=== PATIENT | female | born 1955 | race Caucasian/White ===

== ENCOUNTER 2022-09-02 11:02 | Inpatient (IN) ==
--- NOTE | 2022-07-11 14:42 | PAT Medication Instructions ---
Medication Instructions Date of Service July 11, 2022 Home Medications Nebutone 750 mg PO BID allopurinol 100 mg tablet 100 mg PO QAM amlodipine 5 mg tablet 5 mg PO QAM aspirin 81 mg tablet,delayed release 81 mg PO QAM ] atorvastatin 40 mg tablet (Lipitor) 40 mg PO HS cholecalciferol (vitamin D3) 50 mcg (2,000 unit) capsule (Vitamin D3) 50 mcg PO QAM cyanocobalamin (vitamin B-12) 50 mcg tablet (Vitamin B-12) 50 mcg PO QAM hydroxychloroquine 200 mg tablet (Plaquenil) 200 mg PO BID lisinopril 40 mg tablet 40 mg PO QAM metoprolol succinate 50 mg tablet,extended release 24 hr 50 mg PO BID oxybutynin chloride 5 mg tablet 5 mg PO QAM pantoprazole 40 mg tablet,delayed release 40 mg PO QAM torsemide 10 mg tablet 10 mg PO UD ASK your surgeon for instructions Nebutone 750 mg PO BID ASK your prescriber and surgeon hydroxychloroquine 200 mg tablet (Plaquenil) 200 mg PO BID DO NOT take the morning of surgery cholecalciferol (vitamin D3) 50 mcg (2,000 unit) capsule (Vitamin D3) 50 mcg PO QAM cyanocobalamin (vitamin B-12) 50 mcg tablet (Vitamin B-12) 50 mcg PO QAM lisinopril 40 mg tablet 40 mg PO QAM oxybutynin chloride 5 mg tablet 5 mg PO QAM torsemide 10 mg tablet 10 mg PO UD Take morning of surgery With a small sip of water, OTHERWISE NOTHING TO EAT OR DRINK AFTER MIDNIGHT: allopurinol 100 mg tablet 100 mg PO QAM amlodipine 5 mg tablet 5 mg PO QAM aspirin 81 mg tablet,delayed release 81 mg PO QAM (unless surgeon directed otherwise) metoprolol succinate 50 mg tablet,extended release 24 hr 50 mg PO BID pantoprazole 40 mg tablet,delayed release 40 mg PO QAM Take evening before surgery atorvastatin 40 mg tablet (Lipitor) 40 mg PO HS metoprolol succinate 50 mg tablet,extended release 24 hr 50 mg PO BID Other Notes If you have any questions please call us at [phone] or [phone] or [phone] or [phone]
--- NOTE | 2022-07-18 11:38 | Anesthesiology Consultation ---
Date of Service July 18, 2022 Assessment & Plan (1) Encounter for pre-operative examination: - COVID screening: Per assessment on 07/18: No known COVID-19 positive contacts or current COVID-19 related symptoms. Travel screen negative. Patient vaccinated. At surgeon discretion if preop Covid testing being done. - ASA instructions: per surgeon/prescriber (per patient, she has already been advised to continue ASA perioperatively) - Cardiology visit (06/04/22): "Family history of sarcoidosis however no evidence of systemic sarcoidosis at this moment. I do not feel there is any need to pursue cardiac sarcoidosis work-up at this moment.. PYP scan was initially read as positive for TTR however it turned out to be a wrong interpretation. Patient was seen in cardiac amyloidosis clinic at [place] and underwent extensive work-up. Eventually cardiac amyloidosis was conclusively ruled out however patient has persistently elevated highsensitivity troponin 800 which concerned them. Stress PET scan was negative.. CAD s/p PCI to RCA 2004. PCI to LAD 10/2021 (No CP, negative stress test, but SOB did improve after PCI).. Patient is clinically stable from cardiac standpoint.. Stop Plavix since it has been more than 6 months from prior PCI. Continue aspirin.. History of HR PEF, positive saline challenge on right heart cath. Clinically euvolemic on torsemide.. Persistently elevated highsensitivity troponin. Cardiology at [place] is following closely. Will order highsensitivity troponin in 5 months and communi sameer the results to them.. Without residual disease patient is low risk for perioperative major adverse cardiovascular event for back surgery. No further cardiac workup needed prior to back surgery." Chart Review Chart Review: Acceptable Risk for Surgery and Patient seen in Pre Admission Testing Teaching & Discussion Pre-Anesthesia Teaching/Discussion Notes: Instructed NPO after midnight before surgery,except medications with 15 cc of water. Medication instructions provided according to the PAT guidelines. History Surgery Operation Date: 08/01/22 10:35 Proposed Procedures p L4-S1 Decompression and Fusion, Spinal Cord Monitoring - Chris Shay, Height/Weight Height: 4 ft 9 in Weight: 74.843 kg Allergies Allergy/AdvReac Type Severity Reaction Status Date / Time cephalexin [From Keflex] Allergy Rash Verified 07/09/22 11:26 guaifenesin [From Entex LA] Allergy Hives Verified 07/09/22 11:26 phenylephrine [From Entex LA] Allergy Hives Verified 07/09/22 11:26 phenylpropanolamine Allergy Hives Verified 07/09/22 11:26 [From Entex LA] Sulfa (Sulfonamide Allergy Rash Verified 07/09/22 11:26 Antibiotics) Dura-Tuss Allergy hyperactivi Uncoded 07/09/22 11:26 ty Medications Home Medications Medication Instructions Recorded Confirmed Last Taken Nebutone 750 mg PO BID 07/09/22 07/09/22 Unknown allopurinol 100 mg tablet 100 mg PO QAM 07/09/22 07/09/22 Unknown amlodipine 5 mg tablet 5 mg PO QAM 07/09/22 07/09/22 Unknown aspirin 81 mg tablet,delayed 81 mg PO QAM 07/09/22 07/09/22 Unknown release atorvastatin 40 mg tablet (Lipitor) 40 mg PO HS 07/09/22 07/09/22 Unknown cholecalciferol (vitamin D3) 50 50 mcg PO QAM 07/09/22 07/09/22 Unknown mcg (2,000 unit) capsule (Vitamin D3) cyanocobalamin (vitamin B-12) 50 50 mcg PO QAM 07/09/22 07/09/22 Unknown mcg tablet (Vitamin B-12) hydroxychloroquine 200 mg tablet 200 mg PO BID 07/09/22 07/09/22 Unknown (Plaquenil) lisinopril 40 mg tablet 40 mg PO QAM 07/09/22 07/09/22 Unknown metoprolol succinate 50 mg 50 mg PO BID 07/09/22 07/09/22 Unknown tablet,extended release 24 hr oxybutynin chloride 5 mg tablet 5 mg PO QAM 07/09/22 07/09/22 Unknown pantoprazole 40 mg tablet,delayed 40 mg PO QAM 07/09/22 07/09/22 Unknown release torsemide 10 mg tablet 10 mg PO UD 07/09/22 07/09/22 Unknown Past Medical History Medical History CAD (coronary artery disease) 10/2021- PCI to mid LAD 2004- PCI to RCA Follows with Dr. Hummel ([facility] Cardiology [place]) Emphysema lung "No current issues" per patient GERD (gastroesophageal reflux disease) Gout Hiatal hernia Hyperlipidemia Hypertension Lupus Myocardial Infarction 2004 > PCI to RCA Obesity Osteoarthritis Urinary urgency Attempted bladder surgery failed > now has urgency Exercise / Class Metabolic Activity III < 4 Walking/Shop/Light housework (one FS (no CP, SOB- unchanged)) Past Surgical History Surgical History History of bunionectomy of both great toes History of carpal tunnel release of both wrists History of esophagogastroduodenoscopy (EGD) History of heart artery stent 10/2021- PCI to mid LAD 2004- PCI to RCA Hx laparoscopic cholecystectomy Hx of bladder repair surgery Hx of total hysterectomy Hx of tubal ligation HX: benign breast biopsy Past Anesthesia History No Hx of Anesthesia Complications History of PONV No Hx of PONV and No Hx of Motion Sickness Social History Smoking Status: Current some day smoker tobacco type: cigarettes Smoking cigarettes per day: Occasional (not regular use) Do You Dip or Chew Tobacco: No Hx Alcohol Use: No Hx Substance Use: No substance use type: does not use Review of Systems Patient denies chest pain, shortness of breath, fever, chills, cough, wheezing, palpitations. Physical Exam Vital Signs VITALS BP 134/67 P 67 TEMP 98.5 SP02 96%RA RESP 18 PHYSICAL Full cervical extension range of motion. Full TMJ range of motion. TMD 3.5 finger breaths Mallampati Score 1 Dentition: full upper/lower dentures Lungs: clear throughout to auscultation Cardiac: regular rate and rhythm, no murmurs noted Spine: normal Carotid arteries: negative bruit Extremities: no LE edema Lab Results Anesthesia Preop Results Results Anesthesia Widget: WBC 7.15 K/ul (4.8-10.8) 07/18/22 Hgb 13.1 g/dl (12.0-16.0) 07/18/22 Hct 38.2 % (37.0-47.0) 07/18/22 Plt 209 K/uL (130-400) 07/18/22 Na 138 mmol/L (136-145) 07/18/22 K 4.3 mmol/L (3.5-5.1) 07/18/22 Cl 107 mmol/L (98-107) 07/18/22 CO2 25 mmol/L (21-32) 07/18/22 BUN 15 mg/dl (6-23) 07/18/22 Creat 1.15 mg/dl (0.6-1.2) 07/18/22 Glucose Level 159 mg/dl (70-99(Fasting)) H 07/18/22 PT 11.4 Seconds (9.0-12.0) 07/18/22 PTT 26.5 Seconds (21.0-31.0) 07/18/22 INR 1.0 (0.9-1.1) 07/18/22 Urine Color Dark Yellow 07/18/22 Urine Appearance Clear (Clear) 07/18/22 Urine pH 5.0 (4.5-7.5) 07/18/22 Urine Specific [place] 1.031 (1.000-1.030) H 07/18/22 Urine Protein Trace (Negative) H 07/18/22 Urine Glucose (UA) Negative (Negative) 07/18/22 Urine Ketones Trace (Negative) H 07/18/22 Urine Blood Negative (Negative) 07/18/22 Urine Nitrite Negative (Negative) 07/18/22 Urine Bilirubin Negative (Negative) 07/18/22 Urine Urobilinogen Negative (Negative) 07/18/22 Urine Leukocyte Esterase Negative (Negative) 07/18/22 Urine WBC (Auto) 1-5 /hpf (0-5) 07/18/22 Urine RBC (Auto) 0-4 /hpf (0-4) 07/18/22 Urine Hyaline Casts (Auto) 1-5 /lpf (0-5) 07/18/22 Urine Epithelial Cells (Auto) >30 /lpf (0-5) H 07/18/22 Urine Bacteria (Auto) 1+ (Negative) H 07/18/22 Blood Type A Positive 07/18/22 Antibody Screen NEGATIVE 07/18/22 Testing Laboratory Results Surgeon's office made aware of abnormal UA* Electrocardiogram Date: 07/18/22 SR with PACs at 69bpm. RBBB. Inferior infarct, age undetermined. Basal inferior wall consistent with prior infarct in the RCA territory per 03/2022 stress test. Cardiology preop evaluation appt done 05/2022* Chest X-Ray Date: 07/18/22 FINDINGS: Lung volumes are normal. Lungs are clear. There is no pneumothorax or pleural effusion. There is mild cardiomegaly. Mediastinal contours are normal. There is no evidence for pulmonary edema. IMPRESSION: No acute cardiopulmonary findings. Cardiomegaly. Echocardiogram Date: 08/20/21 LVEF 65%. Moderate LVH. Restrictive filling pattern consistent with grade 3 diastolic dysfunction with evidence of elevated LV end-diastolic pressure. Moderate LAD. Moderate MR. Mild SC. Stress Test Date: 04/02/22 Type: nuclear Small resting defect of mild intensity in the basal inferior wall consistent with prior infarct in the RCA territory, previously reported on a stress CMR. LVEF 63% at rest and with stress. Hypokinesis of the inferior basal wall.Consistent with known RCA disease and prior infarction. Findings consistent with microvascular disease and the patient with known non-ischemic cardiomyopathy. No myocardial ischemia. 48% MPHR. Cardiac Catheterization Date: 10/10/21 Significant mid LAD stenosis s/p PCI, otherwise mild ISR of RCA stent 20% and mild luminal irregularity of the mid CFX. LM is angiographically normal. EF 65 to 70%, no significant trans aortic gradient. Mean PAP 29 mmHg. RAP 4 mmHg. Abnormal LV compliance. Other Testing Carotid studies (12/2020) "normal velocities without stenosis" per 05/2022 cardiology visit note. Attempts to obtain official report unsuccessful. Cardiac MRI (11/13/21) No cardiac MRI evidence of amyloidosis. Near transmural late gadolinium enhancement of the basal and mid inferior temple consistent with previous infarction in the RCA territory with minimal viability. Additionally, there is evidence of linear mid-wall late gadolinium enhancement in the mid anterior septal and inferior septal wall, consistent with a non-ischemic etiology. Normal LV size and normal global systolic function. LVEF 59%. No LVH. Moderate LAD. Mild RAD. No significant valvular disease. Hiatal hernia. COVID-19 Risk Screen Screening Information COVID-19 Screen Date: 07/18/22 Exposure 21 Days Family/Household +COVID Last 21 Days: No Exposure 10 Days Any COVID Exposure Last 10 Days: No Symptoms Last 10 Days Experienced COVID Sx Last 10 Days: No + COVID 0-90 Days COVID + in Last 0-90 Days: No
[~2022-09-02 11:02] MED LIST: ACETAMINOPHEN 500 MG TAB PO SCH; GABAPENTIN 300 MG CAP PO SCH; LR 15ML/HR IV SCH; ceFAZolin 2000MG 2,000 MG/15 ML SYR IV SCH
[2022-09-02] MEDS ORDERED: LIDOCAINE 2% 2 ML VIAL/AMP(20MG/ML) INFIL ONE (11:51)
[2022-09-02] MEDS ORDERED: PROPOFOL IV EMULSION 10 MG/ML 20 ML VIAL IV ONE (11:51)
[2022-09-02] MEDS ORDERED: MIDAZOLAM HCL 1 MG/ML 2ML VIAL ONE (11:51)
[2022-09-02] MEDS ORDERED: fentaNYL citrate PF 100 MCG/2 ML VIAL ONE (11:51)
[2022-09-02] MEDS ORDERED: ROCURONIUM BROMIDE 10 MG/ML 5 ML VIAL IV ONE ×4 (11:51→14:00)
--- NOTE | 2022-09-02 12:12 | History & Physical Bridge Note ---
Date of Service September 02, 2022 History & Physical Bridge Note I have examined the patient, reviewed the History & Physical and in the interval since the performance of the History & Physical I have noted the following changes of clinical significance: no changes noted
--- NOTE | 2022-09-02 12:13 | History & Physical Report ---
Date of Service September 02, 2022 Assessment & Plan (1) Neurogenic claudication due to lumbar spinal stenosis: Plan: L4-S1 decompression and fusion History of Present Illness Chief Complaint: Back and leg pain Primary Care Provider: NO PCP This is a 67-year-old female presents chronic persistent back and leg pain after failing since course of nonoperative care she is here for surgical intervention. Allergies Allergy/AdvReac Type Severity Reaction Status Date / Time cephalexin [From Keflex] Allergy Rash Verified 09/02/22 11:13 guaifenesin [From Entex LA] Allergy Hives Verified 09/02/22 11:13 phenylephrine [From Entex LA] Allergy Hives Verified 09/02/22 11:13 phenylpropanolamine Allergy Hives Verified 09/02/22 11:13 [From Entex LA] Sulfa (Sulfonamide Allergy Rash Verified 09/02/22 11:13 Antibiotics) Home Medications Medication Instructions Recorded Confirmed Type Nebutone 750 mg PO BID 07/09/22 09/02/22 History allopurinol 100 mg tablet 100 mg PO QAM 07/09/22 09/02/22 History amlodipine 5 mg tablet 5 mg PO QAM 07/09/22 09/02/22 History aspirin 81 mg tablet,delayed 81 mg PO QAM 07/09/22 09/02/22 History release atorvastatin 40 mg tablet (Lipitor) 40 mg PO HS 07/09/22 09/02/22 History cholecalciferol (vitamin D3) 50 50 mcg PO QAM 07/09/22 09/02/22 History mcg (2,000 unit) capsule (Vitamin D3) cyanocobalamin (vitamin B-12) 50 50 mcg PO QAM 07/09/22 09/02/22 History mcg tablet (Vitamin B-12) hydroxychloroquine 200 mg tablet 200 mg PO BID 07/09/22 09/02/22 History (Plaquenil) lisinopril 40 mg tablet 40 mg PO QAM 07/09/22 09/02/22 History metoprolol succinate 50 mg 50 mg PO BID 07/09/22 09/02/22 History tablet,extended release 24 hr oxybutynin chloride 5 mg tablet 5 mg PO QAM 07/09/22 09/02/22 History pantoprazole 40 mg tablet,delayed 40 mg PO QAM 07/09/22 09/02/22 History release torsemide 10 mg tablet 10 mg PO UD 07/09/22 09/02/22 History Past Med/Surg History Medical History CAD (coronary artery disease) 10/2021- PCI to mid LAD 2004- PCI to RCA Follows with Dr. Hummel ([facility] Cardiology [place]) Emphysema lung "No current issues" per patient GERD (gastroesophageal reflux disease) Gout Hiatal hernia Hyperlipidemia Hypertension Lupus Myocardial Infarction 2004 > PCI to RCA Obesity Osteoarthritis Urinary urgency Attempted bladder surgery failed > now has urgency Surgical History History of bunionectomy of both great toes History of carpal tunnel release of both wrists History of esophagogastroduodenoscopy (EGD) History of heart artery stent 10/2021- PCI to mid LAD 2004- PCI to RCA Hx laparoscopic cholecystectomy Hx of bladder repair surgery Hx of total hysterectomy Hx of tubal ligation HX: benign breast biopsy Social History Smoking Status: Current some day smoker Cigarettes Per Day: Occasional (not regular use); Second Hand Exposure: Yes (HX); Do You Dip or Chew Tobacco: No; Tobacco Cessation Education Requested by Patient: No Hx Alcohol Use: No Hx Substance Use: No Preferred Language: Setswana Communication Ability: Effective [employer] Counselor Required: No Beliefs That Will Affect Care: None Current Living Situation: Alone Other Information That Helps Us Care for You: No Feels Safe at Home: Yes Safety Concerns: Feels Safe At This Time Assistive Devices: Glasses Assistive Devices Comment: READING GLASSES PRN Physical Exam Physical Exam: Patient is alert and oriented Heart regular rhythm Lungs clear Results & Data Results & Data Vital Signs (Past 12 Hours) Vital Signs Temp Pulse Resp BP Pulse Ox O2 Del Method 09/02/22 11:22 Room Air 09/02/22 11:22 36.6 C 71 20 157/81 H 96 Room Air
[2022-09-02] MEDS ORDERED: fentaNYL citrate PF 100 MCG/2 ML VIAL IV PRN (12:17)
[2022-09-02] MEDS ORDERED: ePHEDrine sulfate 50 MG/ML AMP IV PRN (12:17)
[2022-09-02] MEDS ORDERED: ATROPINE SULFATE 0.1 MG/ML 10ML SYR IV PRN (12:17)
[2022-09-02] MEDS ORDERED: ONDANSETRON INJ 2 MG/ML 2 ML VIAL IV PRN ×2 (12:17→15:47)
[2022-09-02] MEDS ORDERED: ceFAZolin 330 MG/ML 1 GM VIAL ONE (12:35)
[2022-09-02] MEDS ORDERED: BUPIVACAINE/EPINEPHRINE 0.25% 1:200,000 30 ML VIAL ONE (12:35)
[2022-09-02] MEDS ORDERED: DEXAMETHASONE SOD INJ 4 MG/ML VIAL ONE (14:00)
[2022-09-02] MEDS ORDERED: PHENYLEPHRINE HCL 10 MG/ML VIAL ONE (14:00)
[2022-09-02] MEDS ORDERED: ePHEDrine sulfate 50 MG/ML AMP ONE (14:00)
[2022-09-02] MEDS ORDERED: ONDANSETRON INJ 2 MG/ML 2 ML VIAL ONE (14:00)
[2022-09-02] MEDS ORDERED: GLYCOPYRROLATE 0.2 MG/ML VIAL ONE (14:30)
[2022-09-02] MEDS ORDERED: NEOSTIGMINE METHYLSULFATE 1 MG/ML 10ML VIAL ONE (14:30)
[2022-09-02] MEDS ORDERED: FLOSEAL HEMOSTATIC MATRIX 10ML TOP ONE (14:38)
--- NOTE | 2022-09-02 14:47 | Operative Report ---
Post Operative Report Pre & Post Diagnosis Operation Date: 09/02/22 12:25 Pre-Op Diagnosis: Lumbar Region Spondylolisthesis Lumbar spinal stenosis with neurogenic claudication Obesity Post-Op Diagnosis: Same I identified the patient and participated in the time-out.: Yes Procedure Operation Date: 09/02/22 12:25 Actual Procedures 1. Lumbar decompression bilaterally facetectomies and foraminotomies L3-L4 L4- L5 L5-S1. #2 posterior spinal fusion L4-S1. #3 placed posterior instrumentation L4-S1. #4 interbody fusion L4-L5 and L5-S1. #5 placement of Spira 13 x 26 mm cage at L4-L5 and L5-S1. #6 placement locally harvested morselized autograft in the posterior gutters. #7 placement of I factor combined with V toss in the interbody space and posterior lateral gutters. Surgeon Chris Shay, DO [facility] Raina Sawyer Estimated Blood Loss 200 Findings See Below The patient is 4 foot 9 weighing over 75 kg with a BMI in excess of 36. The patient's body habitus did contribute to significant technical difficulty required deeper retractors longer instruments in order to perform her surgery. This at least 50% increased operative time. Specimens none Indications This is a 67-year-old female who presents above-mentioned diagnosis after failing course of nonoperative care is here for surgical invention. Description of Procedure Patient was met with identified informed consent obtained. Patient was then taken to the operative suite underwent ablation placed in a prone position the Thierry with a Moshe frame. All bony promises well-padded eyes inspected to ensure no external pressure placed upon the. This point the lumbar spine was prepped and draped in a sterile fashion. Sharp dissection with assistance of Bovie cautery was performed down to and exposing the lamina transverse processes of L4-5 and the sacral ala bilaterally. From a caudal cephalad fashion complete laminectomy L5 L4 partial laminectomy of L3 was performed including bilateral medial facetectomies and foraminotomies addressing severe spinal stenosis. Pedicle screws were then placed in L4-L5 and S1 levels bilaterally with assistance of fluoroscopy and the properly sized arie placed. By way of a trans foraminal approach on the right a complete discectomy L5-S1 was performed endplates corrected to subcortical bleeding bone and a 13 x 26 mm Spira cage with I factor tapped in position. Then proceeded L4-L5 and again by way of a transforaminal approach and right complete discectomy performed endplates guided to subcortically bone and a 13 x 26 mm Spira cage with I factor tapped the position. The rods then locked into final position bilaterally. The transverse processes of L4-L5 and the sacral ala burred to subcortical bleeding bone. I factor amount of the test and locally harvested morselized autograft was placed in the posterior gutters. 15 round KOLTON drain inserted. The incision was then closed with 1 Vicryl the fascia 2-0 Vicryl subcutaneously and 4 Monocryl for final skin closure. Steri-Strips sterile dressing placed. Patient waken taken to PACU stable condition. Please note spinal cord monitoring was utilized at the procedure no changes noted. Lastly Raina Sawyer was present at the entire surgery involved the patient positioning complex portion of the surgery and final skin closure. I attest to the content of the Intraoperative Record and any orders documented therein. Any exceptions are noted below.
--- NOTE | 2022-09-02 14:58 | Fluoroscopy Report ---
INTRAOPERATIVE RADIOGRAPHS CLINICAL HISTORY: Lumbar spinal fusion surgery. Fluoro time: 26 seconds Ka,r: 41.61 mGy FINDINGS: 2 spot fluoroscopic views of the lumbar spine are presented. There has been discectomy at L 4-L5 and L5-S1 with laminectomy and posterior fusion at L4-S1. Interpedicular screws are present at a ll levels. The orthopedic hardware appears intact. IMPRESSION: Intraoperative images from lumbar spinal fusion surgery as above. Electronically signed by: Carlos Stanton M.D. 09/02/2022 2:56 PM
--- NOTE | 2022-09-02 15:25 | Anesthesiology Progress Note ---
Date of Service September 02, 2022 Anesthesia Post Procedure Vital Signs Vital Signs: Temp Pulse Pulse Resp BP Pulse Ox O2 Del Method 09/02/22 15:20 97.9 F 75 12 113/73 100 Nasal Cannula 09/02/22 15:10 77 16 125/64 98 Nasal Cannula 09/02/22 15:00 80 20 129/71 99 Nasal Cannula 09/02/22 14:51 98.1 F 87 12 121/63 95 Nasal Cannula 09/02/22 11:22 Room Air 09/02/22 11:22 97.9 F 71 20 157/81 H 96 Room Air O2 Flow Rate 09/02/22 15:20 2 09/02/22 15:10 2 09/02/22 15:00 4 09/02/22 14:51 4 09/02/22 11:22 09/02/22 11:22 Pain Intensity Back: Pain Intensity: 0 Transfer of Care Handoff Completed per policy Notes Mental Status: alert / awake / arousable and participated in evaluation Patient Amnestic to Procedure: Yes Nausea / Vomiting: adequately controlled Pain: adequately controlled Airway Patency, RR, SpO2: stable & adequate BP & HR: stable & adequate Hydration State: stable & adequate Anesthetic Complications: no major complications apparent and Pt Satisfied with anesthetic care
[2022-09-02] MEDS: SODIUM CHLORIDE 0.9% 1000ML 1,000 ML IV SCH ×2 (15:45→20:58)
[2022-09-02] MEDS ORDERED: traMADol HCL 50 MG TABLET PO PRN (15:47)
[2022-09-02] MEDS ORDERED: LORazepam 2 MG/1 ML VIAL IV PRN (15:47)
[2022-09-02] MEDS ORDERED: oxyCODONE HCL IR 5 MG TAB (IMMEDIATE RELEASE) PO PRN (15:47)
[2022-09-02] MEDS ORDERED: MAGNESIUM HYDROXIDE SUSP 30 ML UDC PO PRN (15:47)
[2022-09-02] MEDS ORDERED: NALOXONE HCL 0.4 MG/1 ML VIAL/CARP IV PRN (15:47)
[2022-09-02] MEDS ORDERED: bisacodyL 10 MG SUPP PR PRN (15:47)
[2022-09-02] MEDS ORDERED: diphenhydrAMINE Capsule 25 MG CAP PO PRN (15:47)
[2022-09-02] MEDS ORDERED: HYDROmorphone INJ 0.5 MG/0.5 ML SYR IV PRN (15:47)
[2022-09-02] MEDS ORDERED: DO NOT ADMINISTER PNEUMOCOCCAL VACCINE PRN (15:47)
[2022-09-02] MEDS ORDERED: hydrOXYzine HCl 25 MG TAB PO PRN (15:47)
[2022-09-02] MEDS ORDERED: SOD PHOSPHATE/SOD BIPHOSPHATE ENEMA 132 ML BTL PR PRN (15:47)
[2022-09-02] MEDS ORDERED: LORazepam 0.5 MG TAB PO PRN (15:47)
[2022-09-02] MEDS ORDERED: HYDROmorphone INJ 1 MG/ML SYRINGE IV PRN (15:47)
[2022-09-02] MEDS ORDERED: ALUMINUM/MAGNESIUM SUSP 30 ML UDC PO PRN (15:47)
[2022-09-02] MEDS ORDERED: DO NOT ADMINISTER FLU VACCINE PRN (15:47)
[2022-09-02] MEDS ORDERED: PROMETHAZINE HCL 12.5 MG in SODIUM CHLORIDE 0.9% 50 ML IV PRN (15:47)
[2022-09-02] MEDS ORDERED: FAMOTIDINE 20 MG TAB PO PRN (15:47)
[2022-09-02] MEDS ORDERED: ACETAMINOPHEN 1,000 MG/100 ML VIAL IV PRN (15:47)
[2022-09-02] MEDS ORDERED: METOCLOPRAMIDE HCL INJ 5 MG/ML 2 ML VIAL IV PRN (15:47)
[2022-09-02] MEDS ORDERED: ONDANSETRON 4 MG OD TAB PO PRN (15:47)
[2022-09-02] MEDS ORDERED: HYDROmorphone INJ 0.5 MG/0.5 ML SYR ONE (17:19)
[2022-09-02] MEDS: TORSEMIDE 10 MG TAB PO SCH (18:18)
--- NOTE | 2022-09-02 18:49 | Hospitalist Consultation ---
Date of Consultation September 02, 2022 Assessment & Plan (1) S/P spinal surgery: This is a 67yo F with a PMH of HTN, CAD (s/p PCI to RCA in 2004, mid LAD in 2021, follows with [facility] cardiology), Lupus, osteoarthritis other medical problems listed below who is POD#0 s/p lumbar decompression bilaterally facetectomies and foraminotomies L3-L4 L4-L5 L5-S1 and posterior spinal fusion L4-S1 by Dr. Shay. POD#0 s/p lumbar decompression bilaterally facetectomies and foraminotomies L3- L4 L4-L5 L5-S1 and posterior spinal fusion L4-S1 by Dr. Shay. Per ortho for pain control, wound care, anticoagulation and activities Monitor H&H (pre-op hgb 13.1), continue incentive spirometry, PT/OT when appropriate (2) CAD (coronary artery disease): H/o PCI to RCA in 2004, mid LAD in 2021, follows with [facility] cardiology. Stable, continue aspirin, statin, Toprol (3) Lupus: Plaquenil and Nebutone have been held for 1 month in preparation for surgery, continue to hold during post-op period (4) (HFpEF) heart failure with preserved ejection fraction: 2D echo from August 2022 with preserved EF 65%, grade 3 diastolic dysfunction. Appears euvolemic today. Continue MoWeFr Torsemide dosing, monitor volume status closely (5) Urinary urgency: Continue oxybutynin (6) Hypertension: Normotensive. Continue amlodipine, lisinopril, Toprol with hold parameters (7) GERD (gastroesophageal reflux disease): Continue PPI (8) Hyperlipidemia: Continue statin DVT Ppx: SCDs PCP: Resides in [place], [place] Dispo: Per primary service Patient seen in collaboration with Dr. Sen. Please see addendum. I spent a total of 60 minutes coordinating, documenting, and providing care for this patient excluding time spent in the performance of separately billed services. Supervising Physician Co-Signing Physician Notes I have seen and examined the patient and have discussed the case with the provider above. I agree with the assessment and plan as stated. 67 yo F s/p lumbar surgery this evening. She is doing well with only some incisional pain present that is well controlled. She reports getting yeast infections easily and may need Diflucan at some point. Recommend sending her home with this. Physical exam as above. She is hemodynamically stable without concerning clinical signs. Meds were reviewed and updated. Thank you for this consultation. DO Mckinley History of Present Illness Reason for Consultation: Postop med management Attending Physician: Chris Shay DO History of Present Illness This is a 67yo F with a PMH of HTN, CAD (s/p PCI to RCA in 2004, mid LAD in 2021, follows with [facility] cardiology), Lupus, osteoarthritis other medical problems listed below who is POD#0 s/p lumbar decompression bilaterally facetectomies and foraminotomies L3-L4 L4-L5 L5-S1 and posterior spinal fusion L4-S1 by Dr. Shay. Patient is feeling well postoperatively. Having some surg ical site discomfort but denies any kristin pain. No pain or paresthesias in bilateral lower extremities. Denies any lightheadedness, chest pain, shortness of breath, nausea or vomiting. Adams catheter in place. Lives in [place], [place] and receives primary care in [place]. Allergies Allergy/AdvReac Type Severity Reaction Status Date / Time cephalexin [From Keflex] Allergy Rash Verified 09/02/22 11:13 guaifenesin [From Entex LA] Allergy Hives Verified 09/02/22 11:13 phenylephrine [From Entex LA] Allergy Hives Verified 09/02/22 11:13 phenylpropanolamine Allergy Hives Verified 09/02/22 11:13 [From Entex LA] Sulfa (Sulfonamide Allergy Rash Verified 09/02/22 11:13 Antibiotics) Home Medications Medication Instructions Recorded Confirmed Type Nebutone 750 mg PO BID 07/09/22 09/02/22 History allopurinol 100 mg tablet 100 mg PO QAM 07/09/22 09/02/22 History amlodipine 5 mg tablet 5 mg PO QAM 07/09/22 09/02/22 History aspirin 81 mg tablet,delayed 81 mg PO QAM 07/09/22 09/02/22 History release atorvastatin 40 mg tablet (Lipitor) 40 mg PO HS 07/09/22 09/02/22 History cholecalciferol (vitamin D3) 50 50 mcg PO QAM 07/09/22 09/02/22 History mcg (2,000 unit) capsule (Vitamin D3) cyanocobalamin (vitamin B-12) 50 50 mcg PO QAM 07/09/22 09/02/22 History mcg tablet (Vitamin B-12) hydroxychloroquine 200 mg tablet 200 mg PO BID 07/09/22 09/02/22 History (Plaquenil) lisinopril 40 mg tablet 40 mg PO QAM 07/09/22 09/02/22 History metoprolol succinate 50 mg 50 mg PO BID 07/09/22 09/02/22 History tablet,extended release 24 hr oxybutynin chloride 5 mg tablet 5 mg PO QAM 07/09/22 09/02/22 History pantoprazole 40 mg tablet,delayed 40 mg PO QAM 07/09/22 09/02/22 History release torsemide 10 mg tablet 10 mg PO MOWEFR@0900 07/09/22 09/02/22 History Patient History Medical History (Updated 09/02/22 @ 20:56 by Claritza Altamirano PA-C) (HFpEF) heart failure with preserved ejection fraction CAD (coronary artery disease) 10/2021- PCI to mid LAD 2004- PCI to RCA Follows with Dr. Hummel ([facility] Cardiology [place]) Emphysema lung "No current issues" per patient GERD (gastroesophageal reflux disease) Gout Hiatal hernia Hyperlipidemia Hypertension Lupus Myocardial Infarction 2004 > PCI to RCA Obesity Osteoarthritis Urinary urgency Attempted bladder surgery failed > now has urgency Surgical History (Updated 09/02/22 @ 20:26 by Claritza Altamirano PA-C) History of bunionectomy of both great toes History of carpal tunnel release of both wrists History of esophagogastroduodenoscopy (EGD) History of heart artery stent 10/2021- PCI to mid LAD 2004- PCI to RCA Hx laparoscopic cholecystectomy Hx of bladder repair surgery Hx of total hysterectomy Hx of tubal ligation HX: benign breast biopsy Family History Other Diabetes Heart disease PAD (peripheral artery disease) Social History Smoking Status: Former smoker Cigarettes Per Day: Occasional (not regular use); Smoking End Date: 2019; Second Hand Exposure: Yes (HX); Do You Dip or Chew Tobacco: No; Tobacco Cessation Education Requested by Patient: No Hx Alcohol Use: No Hx Substance Use: No Preferred Language: Slovak Communication Ability: Effective Landfill Attendant Required: No Beliefs That Will Affect Care: None Current Living Situation: Alone Other Information That Helps Us Care for You: No Feels Safe at Home: Yes Safety Concerns: Feels Safe At This Time Assistive Devices: Glasses Assistive Devices Comment: READING GLASSES PRN Review of Systems Review of Systems: At least ten systems reviewed and negative except as noted in the HPI. Physical Exam Physical Exam: Gen: WD/WN, NAD, sitting in bedside chair, A&Ox3 HEENT: Normocephalic, atraumatic, conjunctivae moist, sclerae anicteric, mucous membranes moist Lung: Clear to Auscultation bilaterally, no wheezes/rales/rhonchi Heart: Regular rate, regular rhythm, no murmurs, rubs, or gallops Abdomen: Soft, NT, ND +BS x 4 Extremities: Spinal dressing c/d/i. KOLTON drain visualized, no edema, SCDs in place Skin: Warm, no rash Results & Data Results & Data Vital Signs (Past 12 Hours) Vital Signs Temp Pulse Pulse Resp BP Pulse Ox O2 Del Method 09/02/22 17:49 36.6 C 73 14 123/71 100 Nasal Cannula 09/02/22 15:45 Nasal Cannula 09/02/22 15:45 36.4 C L 70 16 113/67 97 Nasal Cannula 09/02/22 16:17 36.4 C L 73 16 111/66 94 Room Air 09/02/22 16:43 66 18 107/63 92 Nasal Cannula 09/02/22 15:20 36.6 C 75 12 113/73 100 Nasal Cannula 09/02/22 15:10 77 16 125/64 98 Nasal Cannula 09/02/22 15:00 80 20 129/71 99 Nasal Cannula 09/02/22 14:51 36.7 C 87 12 121/63 95 Nasal Cannula 09/02/22 11:22 Room Air 09/02/22 11:22 36.6 C 71 20 157/81 H 96 Room Air O2 Flow Rate 09/02/22 17:49 09/02/22 15:45 2 09/02/22 15:45 2 09/02/22 16:17 09/02/22 16:43 2 09/02/22 15:20 2 09/02/22 15:10 2 09/02/22 15:00 4 09/02/22 14:51 4 09/02/22 11:22 09/02/22 11:22 Laboratory Results pre-op hgb 13.1
[2022-09-02] MEDS: CLINDAMYCIN/D5W 600 MG/50 ML BAG IV SCH (20:39)
[2022-09-02] MEDS: ACETAMINOPHEN 500 MG TAB PO PRN (20:39)
[2022-09-02] MEDS: METOPROLOL SUCC 50MG EXT REL TAB PO SCH (20:40)
[2022-09-02] MEDS: HYDROXYCHLOROQUINE SULFATE 200 MG TAB PO SCH (20:40)
[2022-09-02] MEDS: ATORVASTATIN 40 MG TAB PO SCH (20:40)
[2022-09-02] MEDS: DOCUSATE SODIUM/SENNA 50/8.6MG TAB PO SCH (20:40)
[2022-09-03] MEDS: CLINDAMYCIN/D5W 600 MG/50 ML BAG IV SCH (04:50)
[2022-09-03] MEDS: POLYETHYLENE (MIRALAX) 17 GM PACK PO SCH ×3 (05:05→17:29)
[2022-09-03 07:32] LABS: Basophils # (auto) 0.01 K/uL (0-0.2); Basophils % (auto) 0.1 %; Hematocrit (blood only) 31.6 % (37.0-47.0); Immature Granulocytes # (auto) 0.05 K/uL (0.01-0.20); Immature Granulocytes % (auto) 0.4 %; Lymphocytes # (auto) 0.92 K/uL (1.2-3.4); Lymphocytes % (auto) 7.5 %; Mean Corpuscular Hemoglobin 32.7 pg (25.0-34.0); Mean Corpuscular Hgb Conc 34.8 g/dL (32.0-36.0); Mean Platelet Volume 9.8 fL (9.4-12.4); Monocytes # (auto) 0.61 K/uL (0.11-0.59); Monocytes % (auto) 4.9 %; Neutrophils # (auto) 10.75 K/uL (1.40-6.50); Neutrophils % (auto) 87.1 %; Platelet Count 207 K/uL (130-400); RDW Standard Deviation 48.3 fL (36.4-46.3); Red Blood Count 3.36 M/uL (4.20-5.40); White Blood Count 12.34 K/ul (4.8-10.8)
[2022-09-03 07:48] LABS: BUN Creatinine Ratio 16.7 (10-20); Calcium 8.8 mg/dl (8.6-10.3); Creatinine Clr Calc Pharmacy 46.7 ml/min; Est GFR (African American) 69.9 ml/min; Est GFR (Non-African American) 60.3 ml/min; Potassium 4.3 mmol/L (3.5-5.1)
[2022-09-03] MEDS: HYDROXYCHLOROQUINE SULFATE 200 MG TAB PO SCH ×2 (08:22→20:32)
[2022-09-03] MEDS: dexAMETHasone 6 MG in SYRINGE 0 ML IV SCH (08:23)
[2022-09-03] MEDS: METOPROLOL SUCC 50MG EXT REL TAB PO SCH ×2 (08:23→20:32)
[2022-09-03] MEDS: lisinopril 40 MG TAB PO SCH (08:24)
[2022-09-03] MEDS: oxyBUTYnin chloride 5 MG TAB PO SCH (08:24)
[2022-09-03] MEDS: CYANOCOBALAMIN (B-12) 100 MCG TABLET PO SCH (08:25)
[2022-09-03] MEDS: amLODIPine BESYLATE 5 MG TAB PO SCH (08:25)
[2022-09-03] MEDS: ASPIRIN 81 MG ECTAB PO SCH (08:25)
[2022-09-03] MEDS: PANTOprazole 40 MG TAB PO SCH (08:26)
[2022-09-03] MEDS: allopurinoL 100 MG TAB PO SCH (08:26)
[2022-09-03] MEDS: CHOLECALCIFEROL 1,000 UNITS 25 MCG TAB PO SCH (08:26)
[2022-09-03] MEDS: TORSEMIDE 10 MG TAB PO SCH ×2 (08:28→13:35)
--- NOTE | 2022-09-03 14:28 | Orthopedic Progress Note ---
Date of Service September 03, 2022 Assessment & Plan (1) Neurogenic claudication due to lumbar spinal stenosis: Plan: This time we will continue physical therapy monitor her KOLTON operatively discharge home in the next few days. Admission and Anticipated Discharge Date Admission Date: September 02, 2022 Subjective Back pain controlled leg pain markedly improved Physical Exam Physical Exam: Patient is in the chair at the bedside. Is constricted testing. Appears comfortable. Results & Data Vital Signs (Past 12 Hours) Vital Signs Temp Pulse Resp BP Pulse Ox O2 Del Method 09/03/22 07:49 36.5 C 69 16 112/71 95 Room Air 09/03/22 03:48 36.7 C 64 16 108/58 L 94 Room Air Queries Orthopedic Spine Obesity: Yes
--- NOTE | 2022-09-03 16:05 | Hospitalist Progress Note ---
Date of Service September 03, 2022 Assessment & Plan (1) S/P spinal surgery: Plan: This is a 67yo F with a PMH of HTN, CAD (s/p PCI to RCA in 2004, mid LAD in 2021, follows with [facility] cardiology), Lupus, osteoarthritis other medical problems listed below who is POD#0 s/p lumbar decompression bilaterally facetectomies and foraminotomies L3-L4 L4-L5 L5-S1 and posterior spinal fusion L4-S1 by Dr. Shay. 09/02 Pain control, DVT ppx, discharge planning per primary service (2) CAD (coronary artery disease): Plan: H/o PCI to RCA in 2004, mid LAD in 2021, follows with [facility] cardiology Stable, continue aspirin, statin, Toprol (3) Lupus: Plan: Plaquenil and Nebutone have been held for 1 month in preparation for surgery, continue to hold during post-op period (4) (HFpEF) heart failure with preserved ejection fraction: Plan: 2D echo from August 2022 with preserved EF 65%, grade 3 diastolic dysfunction. Continue Mon-Fri-Fri Torsemide dosing, monitor volume status closely (5) Urinary urgency: Plan: Continue oxybutynin (6) Hypertension: Plan: BP at goal. Continue home medications as ordered. Hold parameters in place (7) GERD (gastroesophageal reflux disease): Plan: Continue PPI (8) Hyperlipidemia: Plan: Continue statin Admission and Anticipated Discharge Date Admission Date: September 02, 2022 Subjective Patient feels well. She reports when she leaves here, she will stay with her sister. Wanted to ensure meds are sent to correct pharmacy at discharge Review of Systems Review of Systems: as above Physical Exam Constitutional: Sitting in chair, pleasant and comfortable Respiratory: Breathing comfortably on room air, no wheezing/rhonchi Cardiovascular: Regular rate and rhythm, no murmurs/rubs/gallops Gastrointestinal (Abdomen): Soft, non tender Musculoskeletal: No edema, wearing compression stockings Neurologic: awake, alert, spontaneously moving extremities Results & Data Results & Data Vital Signs (Past 12 Hours) Vital Signs Temp Pulse Resp BP Pulse Ox O2 Del Method 09/03/22 14:41 36.7 C 63 16 138/75 96 Room Air 09/03/22 07:49 36.5 C 69 16 112/71 95 Room Air
[2022-09-03] MEDS: DOCUSATE SODIUM/SENNA 50/8.6MG TAB PO SCH (20:32)
[2022-09-03] MEDS: ACETAMINOPHEN 500 MG TAB PO PRN (20:32)
[2022-09-03] MEDS: ATORVASTATIN 40 MG TAB PO SCH (20:32)
[2022-09-04] MEDS ORDERED: FLUCONAZOLE 50 MG TAB PO ONE (08:19)
--- NOTE | 2022-09-04 08:25 | Discharge Summary ---
Date of Service September 04, 2022 Admission HPI Per Admitting Provider This is a 67-year-old female presents chronic persistent back and leg pain after failing since course of nonoperative care she is here for surgical intervention. Admission Exam (Per Admitting) Constitutional WD/WN, vitals as above Eyes normal visual rosario by confrontation ENMT external ear and nose normal, oropharynx normal Neck normal visual inspection Respiratory normal respiratory effort Cardiovascular Extremities: normal capillary refill Gastrointestinal (Abdomen) Inspection/Auscultation: abdomen normal to inspection Musculoskeletal Extremities: extremities normal to inspection and strength 5/5 throughout Skin no rashes, warm and dry Neurologic normal touch/pain/proprioception and moves all extremities Psychiatric A+Ox3, euthymic affect Discharge Data Consultations 09/02/22 15:47 Consult Hospitalist Routine Procedures Performed Operation Date: 09/02/22 12:25 Actual Procedures p L4-S1 Decompression and Fusion, Spinal Cord Monitoring(Not Applicable) - Chris Shay, DO Hospital Course (1) Neurogenic claudication due to lumbar spinal stenosis: Yvonne is being discharged home on postoperative day 2 status post L4-S1 decompression and instrumented fusion. She has had an uneventful hospital c ourse. She is doing great in physical therapy. Pain is controlled. She had a bowel movement. Lab values are stable. Discharge Instructions ACTIVITY RECOMMENDATIONS: SELF CARE INSTRUCTIONS AFTER THORACIC/LUMBAR FUSIONS 1. You may walk to your tolerance. It is good exercise for your legs and back. Expect some back and intermittent leg aches and pains. 2. You may perform "counter-top" level activities (make a sandwich, shady with a project, etc.). 3. No bending or lifting of more than 10 pounds or back twisting of any nature (roll like a log when turning in bed). 4. You may ride in a car for 20-30 minutes at a time. No driving until after your first visit with your doctor. 5. Frequent changes of position and restricting sitting to 30 minutes at a time will help limit the amount of back spasms and stiffness you may experience. 6. You may discontinue the use of ambulatory aids (cane, crutches, etc.) once your strength and confidence allow. 7. You may communications administrator the shower and let water strike your incision when you arrive home at least once daily. Do not take a tub bath, sit in a hot tub or go into a swimming pool until after your first recheck in the office. SPECIAL CARE INSTRUCTIONS: VERY IMPORTANT TO READ AND REVIEW A. Your surgical incision has been closed with a cosmetic suture under the skin that will dissolve in about 6 weeks. In 14 days, you can use a pair of clean scissors and cut the suture that is left outside of the skin at the ends of your incision. 1. The small skin tapes can be removed 7 days after surgery if they have not fallen off by that point. 2. You may keep the wound open to air as much as possible to promote healing after post-op day number 5 unless told otherwise by your doctor. 3. If you think the wound looks like it is becoming infected (redness or worsening drainage) and/or you are experiencing fever, chill or worsening back pain and muscle spasms, contact the office so that we may evaluate you as soon as possible. B. Complications are uncommon, but please contact us if you have any signs or symptoms of: 1. wound infection (fever higher than 102.5 degrees F, redness, separation of wound, drainage, or increasing pain from the incision) 2. blood clots in legs (pain, swelling, redness and warmth in legs) 3. urinary tract infection (fever higher than 102.5 degrees F, burning upon urination or increased frequency of urination) 4. nerve problems (inability to walk on your toes or heels, numbness, loss of bowel or bladder control) 5. any other symptoms that concern you C. Please call the office at if you have any concerns or questions about your operation or recovery. D. No smoking! Smoking drastically decreases the chance of a solid fusion. E. Do not take any anti-inflammatory medications (Indocin, Advil, Motrin, Aspirin, Naprosyn, etc.) as these may inhibit the chance of a solid fusion. Tylenol is okay to take for pain. MANAGING PAIN AFTER SPINAL SURGERY 1. Narcotic medication is intended for short-term use and will be provided for surgical pain. Surgical pain usually lasts for a period of 4-6 weeks. Narcotic medication includes Percocet, Vicodin, Darvocet, Tylenol #3 or Lortab. 2. Longer-term pain is more appropriately treated with non-narcotic medication such as Tylenol ES. 3. Muscle spasm is not appropriately treated with narcotics. Muscle relaxers such as Soma, Flexeril or Skelaxin can be used along with Tylenol ES. 4. Remember that we all live with some "aches and pains". This is not unusual or uncommon after an injury or as we get older. a. Back pain is expected and may include muscle spasms for 4 to 6 weeks after surgery. The pain should gradually improve. If the pain worsens for no apparent reason, please contact the office. b. Intermittent leg pain may also be experienced and should not be concerned about unless it worsens for no apparent reason. If so, please contact the office. 5. We will provide appropriate medication within the normal guidelines of their prescribed use. We will also be very cautious and aware of potential abuse and extended duration of patients' medication needs. a. Pain medications are for your comfort and to assist with sleep and rest so that the tissue can heal. They are not provided in order to return to normal activity and should not be used through the day. To do so or worsening pain at night can result from ongoing tissue damage and development of tolerance to the prescribed medicine. 6. Please allow 2-3 days to process refills. Prescriptions will not be mailed but must be picked up at the office. FOLLOW UP VISIT: Keep your scheduled follow-up appointment. Any questions, please call the office at .
[2022-09-04] MEDS ORDERED: TORSEMIDE 10 MG TAB PO SCH (09:00)
[2022-09-04] MEDS: lisinopril 40 MG TAB PO SCH (09:18)
[2022-09-04] MEDS: CYANOCOBALAMIN (B-12) 100 MCG TABLET PO SCH (09:18)
[2022-09-04] MEDS: METOPROLOL SUCC 50MG EXT REL TAB PO SCH (09:19)
[2022-09-04] MEDS: HYDROXYCHLOROQUINE SULFATE 200 MG TAB PO SCH (09:20)
[2022-09-04] MEDS: CHOLECALCIFEROL 1,000 UNITS 25 MCG TAB PO SCH (09:21)
[2022-09-04] MEDS: allopurinoL 100 MG TAB PO SCH (09:21)
[2022-09-04] MEDS: oxyBUTYnin chloride 5 MG TAB PO SCH (09:21)
[2022-09-04] MEDS: ASPIRIN 81 MG ECTAB PO SCH (09:21)
[2022-09-04] MEDS: dexAMETHasone 6 MG in SYRINGE 0 ML IV SCH (09:22)
[2022-09-04] MEDS: PANTOprazole 40 MG TAB PO SCH (09:22)
[2022-09-04] MEDS: amLODIPine BESYLATE 5 MG TAB PO SCH (09:22)
--- NOTE | 2022-09-04 11:39 | Hospitalist Progress Note ---
Date of Service September 04, 2022 Assessment & Plan (1) S/P spinal surgery: Plan: This is a 67yo F with a PMH of HTN, CAD (s/p PCI to RCA in 2004, mid LAD in 2021, follows with [facility] cardiology), Lupus, osteoarthritis other medical problems listed below was consulted for postop medical management S/P lumbar decompression bilaterally facetectomies and foraminotomies L3-L4 L4- L5 L5-S1 and posterior spinal fusion L4-S1 by Dr. Shay. 09/02 Pain control, DVT ppx, discharge planning per primary service Bowel regimen to prevent constipation Incentive spirometer Advised to follow-up with PCP in 1 week upon discharge (2) CAD (coronary artery disease): Plan: H/o PCI to RCA in 2004, mid LAD in 2021, follows with [facility] cardiology Stable continue aspirin, statin, Toprol (3) Lupus: Plan: Plaquenil and Nabumetone have been held for 1 month in preparation for surgery Advised to follow up with PCP as to when home meds can be resumed (4) (HFpEF) heart failure with preserved ejection fraction: Plan: 2D echo from August 2022 with preserved EF 65%, grade 3 diastolic dysfunction. Continue Mon-Wed-Fri Torsemide dosing, monitor volume status closely (5) Urinary urgency: Plan: Continue oxybutynin (6) Hypertension: Plan: Continue home medications (7) GERD (gastroesophageal reflux disease): Plan: Continue PPI (8) Hyperlipidemia: Plan: Continue statin DVT Px: per Primary Team Code Status Full Code Admission and Anticipated Discharge Date Admission Date: September 02, 2022 Subjective Patient is seen and examined at bedside States feeling well today Denies any significant pain at surgical site Denies any chest pain, dyspnea, dizziness, nausea, abdominal pain Had bowel movement today Plan to be discharged home today Review of Systems Review of Systems: All systems reviewed & are unremarkable except as noted in Subjective Physical Exam Physical Exam: Physical Exam: Vitals signs as noted above General Appearance:Moderately built and nourished, no apparent distress Head: normocephalic, Atraumatic Eyes: normal inspection, EOMI Neck: supple, Trachea midline Respiratory/Chest: Normal breath sounds, CTA, No accessory muscle use Cardiovascular: S1, S2, + murmur Abdomen/GI:Soft, Non tender, Bowel sounds present Extremities/Musculoskeletal:normal inspection, no edema Back:Surgical site in dressing Neurologic/Psych:AAOX3, grossly no focal neurological deficits Skin: normal color, warm Results & Data Results & Data Vital Signs (Past 12 Hours) Vital Signs Temp Pulse BP Pulse Ox O2 Del Method 09/04/22 07:15 36.7 C 70 122/72 95 Room Air
== END 2022-09-04 13:00 | disposition home or self-care (01) | DRG 454 ==
LOC: ASU 11:02 → 3E 14:51